=== PATIENT | female | born 1960 | race Two or more races ===

== ENCOUNTER → 2019-04-25 06:00 | Outpatient (CLI) | payer OTHER ==
[~2019-04-25] VITALS: Ht 160 cm; Wt 65.8 kg
[~2019-04-25 06:00] MED LIST: COZAAR25 MG PO; FORTAMET500 MG PO
== END | disposition home or self-care (01) ==
LOC: LAB 06:00 → EDSTATUS 09:00 → CIR.AMB 09:00 → EDSTATUS 05-09 09:00
DX: N20.0 Calculus of kidney (principal)

== ENCOUNTER 2019-07-12 08:45 | Inpatient (IN) | payer OTHER ==
[~2019-07-12] VITALS: Ht 157.5 cm; Wt 65.8 kg
[2019-08-01] MEDS ORDERED: METFORMIN HCL850 M1 PO (08:16)
== END 2019-08-03 11:25 | disposition home or self-care (01) | DRG 661 ==
LOC: O/R 07-18 07:00 → SURG 08-01 05:41 → O/R 08-01 05:41 → SURG 08-01 13:55
PROVIDERS: ADMIT Urology; ATTEND Urology
PROC: 0T743DZ Dilation of Left Kidney Pelvis with Intraluminal Device, Percutaneous Approach (ICD-10-PCS; 2019-08-01)
PROC: 0TC13ZZ Extirpation of Matter from Left Kidney, Percutaneous Approach (ICD-10-PCS; principal; 2019-08-01 07:00)
DX: N20.0 Calculus of kidney (principal)